=== PATIENT | female | born 1970 | race African-American/Black ===

== ENCOUNTER 2025-08-02 10:20 | Emergency (ER) | payer MEDICAID ==
[~2025-08-02] VITALS: Ht 162.6 cm; Wt 83.9 kg
[2025-08-02 10:56] LABS: PLATELET COUNT (AUTO) 247 K/uL (179-408); RED BLOOD CELL COUNT(AUTO) 5.06 MIL/uL (3.63-4.92); RED CELL DISTRIBUTION WIDTH 15.4 % (12.3-17.7); WHITE BLOOD COUNT (AUTO) 7.9 K/uL (3.8-11.8)
[2025-08-02 11:01] LABS: *BILIRUBIN,URIN NEGATIVE (NEGATIVE); *CLARITY,URINE CLEAR (CLEAR); *COLOR,URINE YELLOW (YELLOW); *KETONES,URINE NEGATIVE (NEGATIVE); *UROBILINOGEN,URINE 0.2 E.U./dl (NORMAL); LEUKOCYTE ESTERASE ,URINE TRACE (NEGATIVE); NITRITE, URINE NEGATIVE (NEGATIVE); UGLUCOSE NEGATIVE (NEGATIVE)
[2025-08-02 11:10] LABS: ASPARTATE AMINOTRANSFERASE 40.0 U/L (15-37); CREATININE 1.0 mg/dL (0.6-1.3); SODIUM SERUM 140.0 mmol/L (136-145); TOTAL PROTEIN, SERUM 8.2 g/dL (6.4-8.2); UREA NITROGEN, BLOOD 11.0 mg/dL (7-18)
[2025-08-02] MEDS: IV NORMAL SALINE 1000 ML BAG IV ONE (11:12)
[2025-08-02] MEDS ORDERED: ACETAMINOPHEN 500 MG TABLET ONE (11:13)
[2025-08-02] MEDS: ACETAMINOPHEN 500 MG TABLET PO ONE (11:13)
[2025-08-02 11:18] LABS: *BLOOD, URINE TRACE (NEGATIVE); *PROTEIN,URINE 3+ (NEGATIVE)
[2025-08-02 11:32] LABS: SQUAMOUS EPITHELIAL CELL,UR MANY /HPF (NONE SEEN)
[2025-08-02] MEDS ORDERED: KETOROLAC TROMETHAMINE 15 MG INJ ONE (12:11)
[2025-08-02] MEDS ORDERED: CLONIDINE HCL 0.1 MG TABLET ONE (12:11)
[2025-08-02] MEDS: KETOROLAC TROMETHAMINE 15 MG INJ IVP ONE (12:19)
[2025-08-02] MEDS: CLONIDINE HCL 0.1 MG TABLET PO ONE (12:19)
[2025-08-02 12:35] VITALS: BP 164/83
[2025-08-02 13:03] VITALS: BP 164/83; TEMP 98.8; O2SAT 96
== END 2025-08-02 13:04 | disposition home or self-care (01) ==
LOC: ER 10:20
DX: J06.9 Acute upper respiratory infection, unspecified (principal); B97.89 Other viral agents as the cause of diseases classified elsewhere; Z90.710 Acquired absence of both cervix and uterus; R00.0 Tachycardia, unspecified
CPT/HCPCS: 99285; 96374; 71045; 96361; 80076; 80048; 81001; 85025; 36415; 93005; J1885; J7040; A4606; A4663; A9150